=== PATIENT | female | born 1990 | race Caucasian/White ===

== ENCOUNTER 2024-02-16 02:51 | Emergency (ER) | payer SELFPAY ==
[~2024-02-16] VITALS: Ht 160 cm; Wt 77.1 kg
[~2024-02-16 02:51] MED LIST: CIPRO500 MG PO; MOTRIN600 MG PO; ZANTAC150 MG PO; ZOFRAN4 MG PO
[2024-02-16 03:15] LABS: BASO % 0.4 % (0.0-1.0); EOS # 0.2 10*3/uL (0.0-0.4); EOS % 1.4 % (1.0-4.0); HEMATOCRIT 37.3 % (37.0-47.0); LYMPH # 2.2 10*3/uL (1.3-4.4); MEAN CORPUSCULAR HGB 30.5 pg (27.0-31.0); MEAN CORPUSCULAR HGB CONC 33.5 g/dl (33.0-37.0); MEAN PLATELET VOLUME 10.3 fl (9.6-12.3); MONO # 0.8 10*3/uL (0.1-1.0); MONO % 7.2 % (3.0-9.0); NEUT # 7.4 10*3/uL (2.3-7.9); NEUT % 69.7 % (47.0-73.0); PLATELET COUNT AUTOMATED 275 10*3/uL (130-400); WHITE BLOOD COUNT 10.6 10*3/uL (4.8-10.8)
[2024-02-16 03:37] LABS: ALKALINE PHOSPHATASE 81 U/L (46-116); BUN 7 mg/dl (9-23); CHLORIDE 107 mmol/L (98-107); POTASSIUM 3.4 mmol/L (3.4-5.1); SGPT/ALT 24 U/L (5-49); TOTAL PROTEIN 7.4 gm/dL (6.0-8.0)
[2024-02-16] MEDS ORDERED: NAPROXEN 250 MG TAB PO ONE (08:20)
[2024-02-16] MEDS ORDERED: NAPROSYN500 MG PO (08:21)
== END 2024-02-16 08:27 | disposition home or self-care (01) ==
LOC: ED 02:51
PROVIDERS: Internal Medicine
DX: N12 Tubulo-interstitial nephritis, not specified as acute or chronic (principal); R00.0 Tachycardia, unspecified; Z91.040 Latex allergy status; Z91.041 Radiographic dye allergy status; Z90.710 Acquired absence of both cervix and uterus